=== PATIENT | female | born 2000 | race American Indian/Alaskan Native ===

== ENCOUNTER 2019-09-30 06:34 | Emergency (ER) | payer SELFPAY ==
--- NOTE | 2019-09-30 08:48 | Emergency Department Report ---
Chief Complaint: Fever Stated Complaint: LIGHTHEADED, FEVER, NASAL DRAINAGE Time Seen by Provider: 09/30/19 08:43 - HPI History of Present Illness: Patient is a 19-year-old female who is presenting with flulike symptoms. Patient states for the past 2-3 days she has had mild cough is not productive bodyaches fevers chills and a mild headache. Patient denies nausea vomiting diarrhea. - ROS Review of Systems: All other systems are reviewed and are negative - Exam Vital Signs: Patient alert and oriented 3. There is no sinus tenderness present. Oropharynx is nonswollen and not erythematous with no tonsillar exudates. Lungs are clear to auscultation. Heart tones normal. Abdomen soft and nontender. Patient is in no acute distress MSE screening note: Focused history and physical exam performed. Due to findings the following was ordered: ED Medical Decision Making - Medical Decision Making Patient has not medical emergency at this time. Patient is taking Tylenol Cold and flu and can continue with this medication. Patient is outside the window for Tamiflu. Patient also should take Flonase which she can obtain [id number]. ED Disposition for MSE Clinical Impression: Influenza Disposition: Z- MED SCREENING EXAM-LEFT Is pt being admited?: No Does the pt Need Aspirin: No Condition: Stable Instructions: Influenza (ED) Additional Instructions: The size B Tylenol Cold and flu which she can continue please also by Flonase [id number] with little help with your nasal congestion Referrals: JALIL RAMIREZ MD [Referring] - 3-5 Days Time of Disposition: 08:48
== END 2019-09-30 09:00 | disposition left against medical advice (07) ==
LOC: ED 06:34
DX: J11.1 Influenza due to unidentified influenza virus with other respiratory manifestations (principal)
CPT/HCPCS: 99281

== ENCOUNTER 2020-05-21 06:55 | Emergency (ER) | payer SELFPAY ==
[2020-05-21 07:21] VITALS: BP 157/104
--- NOTE | 2020-05-21 10:04 | Emergency Department Report ---
- General Chief Complaint: Upper Respiratory Infection Stated Complaint: DIFFICULTY BREATHING PUI?: Yes Time Seen by Provider: 05/21/20 09:50 Source: patient Mode of arrival: Ambulatory Limitations: No Limitations - History of Present Illness Initial Comments: 20-year-old morbid obese female presents to the emergency room for shortness of breath, cough patient denies any fever chills no nausea no vomiting no loss of taste diarrhea abdominal pain or urinary frequency or urgency., runny nose and exposure to a COVID 19 person 3 weeks ago. MD Complaint: cough, rhinorrhea Onset/Timin -: days(s) Associated Symptoms: rhinorrhea, cough, shortness of breath, nausea. denies: vomiting, diarrhea, dysuria - Related Data Previous Rx's Medication Instructions Recorded Last Taken Type Benzonatate [Tessalon Perle] 100 mg PO TID #15 capsule 09/28/18 Unknown Rx Dexchlorpheniram/Phenylephrine 1 each PO Q6H #20 tab 09/28/18 Unknown Rx [Rymed Tablet] Ibuprofen [Motrin 800 MG tab] 800 mg PO Q8HR #21 tablet 09/28/18 Unknown Rx Allergies Allergy/AdvReac Type Severity Reaction Status Date / Time No Known Allergies Allergy Verified 09/27/18 23:20 ED Review of Systems ROS: Stated complaint: DIFFICULTY BREATHING Other details as noted in HPI Comment: All other systems reviewed and negative ED Past Medical Hx - Past Medical History Previous Medical History?: No - Surgical History Past Surgical History?: Yes Additional Surgical History: tonsilectomy and adenoids - Social History Smoking Status: Never Smoker Substance Use Type: None - Medications Home Medications: Home Medications Medication Instructions Recorded Confirmed Last Taken Type Benzonatate [Tessalon Perle] 100 mg PO TID #15 capsule 09/28/18 Unknown Rx Dexchlorpheniram/Phenylephrine 1 each PO Q6H #20 tab 09/28/18 Unknown Rx [Rymed Tablet] Ibuprofen [Motrin 800 MG tab] 800 mg PO Q8HR #21 tablet 09/28/18 Unknown Rx ED Physical Exam - General Limitations: No Limitations General appearance: alert, in no apparent distress, obese - Head Head exam: Present: atraumatic, normocephalic - Eye Eye exam: Present: normal appearance - ENT ENT exam: Present: mucous membranes moist, other (Rhinorrhea) - Neck Neck exam: Present: normal inspection, full ROM - Respiratory Respiratory exam: Present: normal lung sounds bilaterally. Absent: respiratory distress - Cardiovascular Cardiovascular Exam: Present: regular rate, normal rhythm. Absent: systolic murmur, diastolic murmur, rubs, gallop - GI/Abdominal GI/Abdominal exam: Present: soft, normal bowel sounds - Neurological Exam Neurological exam: Present: alert, oriented X3 - Psychiatric Psychiatric exam: Present: normal affect, normal mood - Skin Skin exam: Present: warm, dry, intact, normal color. Absent: rash ED Course Vital Signs 05/21/20 07:00 Temperature 97.5 F L Pulse Rate 100 H Respiratory 22 Rate Blood Pressure 157/104 O2 Sat by Pulse 98 Oximetry ED Medical Decision Making - Lab Data Result diagrams: 05/21/20 10:24 05/21/20 10:24 - Radiology Data Radiology results: report reviewed Patient: ROSALIO DODSON MR#: [id number] : 2000 Acct:[id number] Age/Sex: 20 / F ADM Date: 05/21/20 Loc: ED Attending Dr: Ordering Physician: RAYSHAWN JANG Date of Service: 05/21/20 Procedure(s): XR chest routine 2V Accession Number(s): [id number] cc: RAYSHAWN JANG Fluoro Time In Minutes: CHEST 2 VIEWS INDICATION / CLINICAL INFORMATION: sob,cough and rales. COMPARISON: 2 views of the chest from 09/27/2018. FINDINGS: SUPPORT DEVICES: None. HEART / MEDIASTINUM: No significant abnormality. LUNGS / PLEURA: No significant pulmonary or pleural abnormality. No pneumothorax. ADDITIONAL FINDINGS: No significant additional findings. IMPRESSION: 1. No acute abnormality of the chest. Signer Name: Jori Sifuentes MD Signed: 05/21/2020 10:32 AM Workstation Name: [id number] Transcribed By: MN Dictated By: Jori Sifuentes MD Electronically Authenticated By: Jori Sifuentes MD Signed Date/Time: 05/21/201031 DD/ 31 TD/TT: - Medical Decision Making 20-year-old morbid obese female presents to the emergency room for shortness of breath, cough patient denies any fever chills no nausea no vomiting no loss of taste diarrhea abdominal pain or urinary frequency or urgency., runny nose and exposure to a COVID 19 person 3 weeks ago. Chest x-ray is negative for any acute findings blood work is stable. Patient is to be discharged home and instructed to take [id number] Claritin or Zyrtec's. Patient is encouraged to lose weight as this can also make her short of breath. Patient be referred to a primary care doctor and a bariatric specialist. Critical care attestation.: If time is entered above; I have spent that time in minutes in the direct care of this critically ill patient, excluding procedure time. ED Disposition Clinical Impression: Severely overweight Allergic rhinitis Qualifiers: Allergic rhinitis trigger: other Allergic rhinitis seasonality: seasonal Qualified Code(s): J30.89 - Other allergic rhinitis Disposition: TO HOME OR SELFCARE Is pt being admited?: No Does the pt Need Aspirin: No Condition: Stable Instructions: Allergic Rhinitis (ED) Additional Instructions: Try taking [id number] Zyrtec's or Claritin for allergic rhinitis. Your chest x-ray and blood work are all within normal limits. I am referring you to [facility] and to [facility] as well as Dr. Soto is a general surgeon for bariatric weight loss. Referrals: PRIMARY MD MELISSA [Primary Care Provider] - 3-5 Days [facility] [Provider Group] - 3-5 Days DWIGHT SOTO MD [Staff Physician] - 3-5 Days [facility] [Outside] - 3-5 Days Forms: Work/School Release Form(ED)
--- NOTE | 2020-05-21 10:36 | XRay Report ---
CHEST 2 VIEWS INDICATION / CLINICAL INFORMATION: sob,cough and rales. COMPARISON: 2 views of the chest from 09/27/2018. FINDINGS: SUPPORT DEVICES: None. HEART / MEDIASTINUM: No significant abnormality. LUNGS / PLEURA: No significant pulmonary or pleural abnormality. No pneumothorax. ADDITIONAL FINDINGS: No significant additional findings. IMPRESSION: 1. No acute abnormality of the chest. Signer Name: Jori Sifuentes MD Signed: 05/21/2020 10:32 AM Workstation Name: [id number]
[2020-05-21 11:35] LABS: Basophils # (Auto) 0.1 K/mm3 (0.0-0.1); Basophils % (Auto) 1.2 % (0.0-1.8); Eosinophils # (Auto) 0.1 K/mm3 (0.0-0.4); Hematocrit 38.8 % (30.3-42.9); Hemoglobin 12.5 gm/dl (10.1-14.3); Lymphocytes # (Auto) 1.3 K/mm3 (1.2-5.4); Lymphocytes % (Auto) 21.1 % (13.4-35.0); Mean Corpuscular HGB Conc 32 % (30-34); Mean Corpuscular Volume 90 fl (79-97); Monocytes # (Auto) 0.5 K/mm3 (0.0-0.8); Monocytes % (Auto) 8.8 % (0.0-7.3); Platelet Count 282 K/mm3 (140-440); Red Blood Count 4.33 M/mm3 (3.65-5.03); Red Cell Distribution Width 14.8 % (13.2-15.2)
[2020-05-21 11:54] LABS: Alanine Aminotransferase 18 units/L (7-56); Albumin 4.1 g/dL (3.9-5); Blood Urea Nitrogen 10 mg/dL (7-17); Calcium 9.1 mg/dL (8.4-10.2); Hemolysis Index 6
[2020-05-21 11:55] LABS: BUN/Creatinine Ratio 20
== END 2020-05-21 13:30 | disposition home or self-care (01) ==
LOC: ED 06:55
DX: J30.89 Other allergic rhinitis (principal); E66.3 Overweight; Z68.44 Body mass index [BMI] 60.0-69.9, adult; Z98.890 Other specified postprocedural states; Z79.899 Other long term (current) drug therapy
CPT/HCPCS: 36415; 71046; 80053; 85025

== ENCOUNTER 2022-04-24 12:32 | Emergency (ER) | payer SELFPAY ==
[2022-04-24 13:20] VITALS: BP 173/94
--- NOTE | 2022-04-24 13:21 | Emergency Department Report ---
Stated Complaint: VERY SHARP STOMACH PAINS SENSITIVE TO TOUCH Time Seen by Provider: 04/24/22 13:19 - HPI History of Present Illness: 1 week history of abdominal and epigastric pain. denies fever, n/v. - ROS Review of Systems: epigastric pain, wells. denies fever, n/v/d, and dysuria. - Exam Physical Exam: alert and oriented. MSE screening note: Focused history and physical exam performed. Due to findings the following was ordered:cbc, cmp, lipase, ua, qual hcg. patient will be evaluated in back by another provider when she gets a room. ED Disposition for MSE Condition: Stable
[2022-04-24 14:17] LABS: Alanine Aminotransferase 13 units/L (7-56); Albumin 4.3 g/dL (3.9-5); Blood Urea Nitrogen 13 mg/dL (7-17); Calcium 9.5 mg/dL (8.4-10.2); Hemolysis Index 1
[2022-04-24 14:42] LABS: Hematocrit 40.6 % (30.3-42.9); Hemoglobin 13.3 gm/dl (10.1-14.3); Mean Corpuscular HGB Conc 33 % (30-34); Mean Corpuscular Volume 93 fl (79-97); Platelet Count 259 K/mm3 (140-440); Red Blood Count 4.35 M/mm3 (3.65-5.03)
[2022-04-24 14:44] LABS: BUN/Creatinine Ratio 26
== END 2022-04-24 19:00 | disposition left against medical advice (07) ==
LOC: ED 12:32
DX: R10.9 Unspecified abdominal pain (principal); Z53.21 Procedure and treatment not carried out due to patient leaving prior to being seen by health care provider
CPT/HCPCS: 36415; 80053; 83690; 84703; 85027